=== PATIENT | female | born 1970 | race Asian ===

== ENCOUNTER 2017-07-21 00:33 | Emergency (ER) | payer OTHER ==
[~2017-07-21] VITALS: Ht 157.5 cm; Wt 72.6 kg
[2017-07-21 03:33] VITALS: BP 151/99
[2017-07-21 03:50] LABS: Urine Bilirubin Negative (Negative); Urine Blood TRACE /uL (Negative); Urine Color Yellow (Yellow); Urine Glucose Normal (Normal); Urine Ketone Negative (Negative); Urine Nitrite Negative (Negative); Urine RBC <1 /hpf (0 - 4); Urine Squamous Epithelial Cell FEW /hpf (<5); Urine Urobilinogen Normal (Negative); Urine pH 5.5 (5.0-8.0)
[2017-07-21 03:55] LABS: Basophils # (auto) 0.1 uL; Eosinophils # (auto) 0.2 uL; Lymphocytes # (auto) 3.4 uL
[2017-07-21 03:56] LABS: Basophils % (auto) 0.8 % (0.0-2.0); Eosinophils % (auto) 1.4 % (0.0-7.0); Hematocrit 42.4 % (36.0-46.0); Hemoglobin 13.6 g/dL (12.2-16.2); Lymphocytes % (auto) 27.7 % (10.0-50.0); Mean Corpuscular Hemoglobin 26.3 pg (28.0-32.0); Mean Corpuscular Hgb Conc. 32.2 g/dL (32.0-36.0); Mean Corpuscular Volume 81.6 fL (80.0-100.0); Mean Platelet Volume 7.3 fL (6.9-10.8); Monocytes # (auto) 0.6 uL; Neutrophils # (auto) 8.1 uL; Neutrophils % (auto) 65.1 % (37.0-80.0); Nucleated Red Blood Cells % 0.1 %; Platelet Count (auto) 381 10^3/uL (140-450); Red Cell Distribution Width 13.7 % (11.8-14.3); White Blood Cell 12.4 10^3/uL (4.4-10.8)
[2017-07-21 04:11] LABS: Albumin 4.3 g/dL (3.4-5.0); BUN/Creatinine Ratio 10.9; Bilirubin, Total 0.3 mg/dL (0.2-1.0); Calcium 9.4 mg/dL (8.5-10.1); Potassium 3.5 mmol/L (3.5-5.1); Total Protein 9.3 g/dL (6.4-8.2)
[2017-07-21] MEDS ORDERED: SODIUM CHLORIDE 0.9% 1,000 ML IV ONE (08:10)
[2017-07-21] MEDS ORDERED: PANTOPRAZOLE 40 MG/10 ML VIAL IV ONE (08:15)
== END 2017-07-21 08:25 | disposition left against medical advice (07) ==
LOC: EDBD 00:33 → ER 00:43
DX: R10.12 Left upper quadrant pain (principal); E11.9 Type 2 diabetes mellitus without complications; K21.9 Gastro-esophageal reflux disease without esophagitis; I10 Essential (primary) hypertension
CPT/HCPCS: 36415; 74176; 80053; 81001; 81025; 82150; 82962; 83690; 85025

== ENCOUNTER 2018-05-05 10:44 | Observation (INO) | payer OTHER ==
[~2018-05-05] VITALS: Ht 157.5 cm; Wt 65.8 kg
[2018-05-05 11:34] LABS: Basophils # (auto) 0.1 uL; Basophils % (auto) 0.7 % (0.0-2.0); Lymphocytes % (auto) 24.9 % (10.0-50.0); Monocytes # (auto) 0.6 uL; Neutrophils # (auto) 5.1 uL; Nucleated Red Blood Cells % 0.1 %
[2018-05-05 11:35] LABS: Eosinophils # (auto) 0.3 uL; Eosinophils % (auto) 4.1 % (0.0-7.0); Hematocrit 37.4 % (36.0-46.0); Hemoglobin 12.3 g/dL (12.2-16.2); Mean Corpuscular Volume 81.8 fL (80.0-100.0); Monocytes % (auto) 7.2 % (0.0-12.0); Neutrophils % (auto) 63.1 % (37.0-80.0); Platelet Count (auto) 414 10^3/uL (140-450); Red Blood Cells 4.57 10^6/uL (4.0-5.20); Red Cell Distribution Width 13.6 % (11.8-14.3)
[2018-05-05] MEDS ORDERED: ALPRAZolam 0.5 MG TAB PO ONE (11:45)
[2018-05-05] MEDS ORDERED: ASPirin 81 mg TAB PO ONE (11:45)
[2018-05-05 11:46] LABS: INR 0.95 (0.9-1.15); Partial Thromboplastin Time 25.4 sec (23.78-33.04); Prothrombin Time 10.2 sec (9.27-12.13)
[2018-05-05] MEDS ORDERED: SODIUM BICARBONATE 8.4% INJ 50ML SYRINGE ONE (11:59)
[2018-05-05 12:00] LABS: Alanine Aminotransferase 43 U/L (13-56); Albumin 4.1 g/dL (3.4-5.0); Alkaline Phosphatase 49 U/L (45-117); Anion Gap 5 (5-15); Aspartate Aminotransferase 31 U/L (15-37); BUN/Creatinine Ratio 11.8; Bilirubin, Total 0.3 mg/dL (0.2-1.0); Blood Urea Nitrogen 14 mg/dL (7-18); Calcium 9.2 mg/dL (8.5-10.1); Carbon Dioxide 24 mmol/L (21-32); Chloride 108 mmol/L (98-107); GFR African American 63 mL/min; GFR Non-African American 52 mL/min; Glucose 159 mg/dL (74-106); Magnesium 2.1 mg/dL (1.6-2.6); Potassium 3.7 mmol/L (3.5-5.1); Sodium 137 mmol/L (136-145); Total Protein 8.4 g/dL (6.4-8.2)
[2018-05-05 13:19] LABS: Urine Bacteria NONE SEEN /hpf (None Seen); Urine Blood Negative /uL (Negative); Urine Specific Gravity 1.008 (1.001-1.035); Urine WBC <1 /hpf (0 - 5)
[2018-05-05] MEDS ORDERED: IOHEXOL 350 MG/ML 100ML IJ ONE (13:56)
[2018-05-05 16:01] VITALS: BP 123/89
== END 2018-05-05 18:01 | disposition home or self-care (01) | DRG 313 ==
LOC: ER 10:44 → EDBD 10:44 → OVERFLOW 10:45 → ER 18:01
PROVIDERS: ADMIT Family Medicine; ATTEND Family Medicine
DX: R07.89 Other chest pain (principal); F41.0 Panic disorder [episodic paroxysmal anxiety]; E11.9 Type 2 diabetes mellitus without complications; E78.5 Hyperlipidemia, unspecified; I10 Essential (primary) hypertension; K21.9 Gastro-esophageal reflux disease without esophagitis; F41.9 Anxiety disorder, unspecified; Z82.49 Family history of ischemic heart disease and other diseases of the circulatory system
CPT/HCPCS: 36415; 71045; 71275; 80053; 81001; 81025; 83735; 84443; 84484; 85025; 85379; 85610; 85730; 93005; 99285; G0378; Q9967